=== PATIENT | male | born 1950 | race Caucasian/White ===

== ENCOUNTER 2017-04-30 13:19 | Day surgery (SDC) | payer OTHER ==
[~2017-04-30] VITALS: Ht 170.2 cm; Wt 87.6 kg
[~2017-04-30 13:19] MED LIST: CENTRUM SILVER1 EAC4 PO; CO Q10100 MG PO; FISH OIL 1,0001 EAC2 PO; Glucosamine Ch1 EAC3 PO; Milk Thistle500 MG PO; SILDENAFIL20 MG PO
== END 2017-04-30 15:21 | disposition home or self-care (01) ==
LOC: ORSCSDS 13:19
PROVIDERS: Internal Medicine Gastroenterology
PROC: 0DBN8ZX Excision of Sigmoid Colon, Via Natural or Artificial Opening Endoscopic, Diagnostic (ICD-10-PCS; principal; 2017-04-30 15:00)
DX: Z12.11 Encounter for screening for malignant neoplasm of colon (principal); K63.5 Polyp of colon; K57.30 Diverticulosis of large intestine without perforation or abscess without bleeding; Z86.010 Personal history of colon polyps; Z80.0 Family history of malignant neoplasm of digestive organs; F17.210 Nicotine dependence, cigarettes, uncomplicated
CPT/HCPCS: 88305; J7120

== ENCOUNTER 2020-07-11 07:21 | Inpatient (IN) | payer MEDICARE, OTHER ==
[~2020-07-11] VITALS: Ht 170.2 cm; Wt 71.4 kg
[~2020-07-11 07:21] MED LIST changes: +OXYC10TA19 PO
[2020-07-11 07:59] LABS: Hematocrit 28.7 % (37.0-53.0); Mean Corpuscular HGB 29.4 pg (26.0-34.0); Mean Corpuscular HGB Conc 31.4 g/dL (31.5-36.5); Mean Corpuscular Volume 94 fL (80-100); Mean Platelet Volume 9.6 fL (9.1-12.4); Platelet Count 392 K/mm3 (150-400); RDW Coefficient Variation 16.4 % (11.7-14.2); RDW Standard Deviation 55.2 fL (35.1-46.3); Red Blood Cell Count 3.06 M/mm3 (4.30-5.90)
[2020-07-11 08:05] LABS: Calcium, Ionized (POC) 1.19 mmol/L (1.10-1.46); Chloride (POC) 101 mmol/L (98-108); Glucose (ISTAT POC) 104 mg/dL (70-99); Hemoglobin (POC) 9.5 g/dL (13.5-17.5); Potassium (POC) 4.4 mmol/L (3.5-5.5); Sodium (POC) 137 mmol/L (135-148); Total CO2 (POC) 26 mmol/L (21-32)
[2020-07-11 08:26] LABS: Source, Urine Urostomy Bag
[2020-07-11 08:34] LABS: Alanine Aminotransfer (ALT/SGP 32 U/L (12-78); Albumin, Blood 1.7 g/dL (3.4-5.0); Albumin/Globulin Ratio 0.5 (0.8-1.8); Alk Phos 178 U/L (50-136); Anion Gap 5 mmol/L (6-16); Aspartate Aminotrans (AST/SGOT 22 U/L (12-37); BASOPHILS PERCENT MAN 0 % (0-2); Bilirubin, Total 0.4 mg/dL (0.1-1.0); Blood Urea Nitrogen 31 mg/dL (8-24); Bun/Creatinine Ratio 30.4 (12.0-20.0); CO2, Blood 27 mmol/L (21-32); Calcium, Blood 7.6 mg/dL (8.5-10.1); Chloride, Blood 109 mmol/L (98-108); Creatinine, Blood 1.02 mg/dL (0.60-1.20); EOSINOPHILS PERCENT MAN 0 % (0-6); Globulin, Blood 3.6 g/dL (2.2-4.0); Glomerular Filtration Rate >60 (60-); Glucose, Blood 102 mg/dL (70-99); LYMPHOCYTES ABSOLUTE MAN 3.45 K/mm3 (0.84-5.20); LYMPHOCYTES PERCENT MAN 18 % (21-46); MONOCYTES ABSOLUTE MAN 1.15 K/mm3 (0.16-1.47); MONOCYTES PERCENT MAN 6 % (4-13); NEUTROPHILS ABSOLUTE MAN 14.59 K/mm3 (1.96-9.15); Potassium, Blood 4.6 mmol/L (3.5-5.5); SEG NEUTROPHILS PERCENT MAN 76 % (41-73); Sodium, Blood 141 mmol/L (136-145); TOTAL CELLS COUNTED 100; Total Protein, Blood 5.3 g/dL (6.4-8.2)
[2020-07-11 08:43] LABS: Appearance, Urine Turbid (Clear); Bilirubin, Urine Neg (Neg); Blood, Urine 5+ (Neg); Color, Urine Yellow (P-Yellow); Glucose Qualitative, Urine Neg (Neg); Ketones, Urine 1+ (Neg); Leukocyte Esterase, Urine 3+ (Neg); Nitrite, Urine Neg (Neg); Protein, Urine 3+ (Neg); Specific Gravity, Urine 1.015 (1.003-1.022); Urobilinogen, Urine 2+ (Normal)
[2020-07-11] MEDS ORDERED: Hair, Skin & N1 EACH PO (08:48)
[2020-07-11] MEDS ORDERED: METO25 PO (08:48)
[2020-07-11] MEDS ORDERED: PANT40 PO (08:49)
[2020-07-11] MEDS ORDERED: ACET325 PO (08:49)
[2020-07-11] MEDS ORDERED: ONDA4 PO (08:50)
[2020-07-11] MEDS ORDERED: MELA3 PO (08:50)
[2020-07-11] MEDS ORDERED: OXYB5 PO (08:51)
[2020-07-11] MEDS ORDERED: ALBU90OI6 INH (08:52)
[2020-07-11 09:10] LABS: Bacteria Many /hpf; Squamous Epithelial Cells Not Seen /hpf (Few); White Blood Cells, Urine TNTC /hpf (0-5)
[2020-07-11 11:29] LABS: Source, Urine Catheter
[2020-07-11 11:36] LABS: Hematocrit 23.9 % (37.0-53.0); Hemoglobin 7.5 g/dL (13.5-17.5)
[2020-07-11 11:50] LABS: Blood, Urine 5+ (Neg); Glucose Qualitative, Urine Neg (Neg); Ketones, Urine Neg (Neg); Leukocyte Esterase, Urine 2+ (Neg); Nitrite, Urine Neg (Neg); Protein, Urine 3+ (Neg); Urobilinogen, Urine 1+ (Normal)
[2020-07-11 12:02] LABS: Bilirubin, Urine 1+ (Neg)
[2020-07-11 12:05] LABS: Color, Urine Yellow (P-Yellow)
[2020-07-11 12:06] LABS: Appearance, Urine Hazy (Clear)
[2020-07-11 12:20] LABS: Red Blood Cells, Urine 25-50 /hpf (0-2)
[2020-07-11 12:23] LABS: Squamous Epithelial Cells Rare /hpf (Few)
[2020-07-11 12:24] LABS: Bacteria Mod /hpf; Calcium Oxalate Crystals Rare /hpf; Granular Casts 0-2 /lpf (0); Mucus Mod (0-Heavy); Renal Epithelial Rare /hpf (0-Rare)
--- NOTE | 2020-07-11 13:00 | NUR ---
Assumed care of pt upon arrival from emergency department at 1200. Pt arrived with Stormy RIVERA. Pt slid from ED gurney to ICU bed using slider sheet and 5 staff. Pt tolerated well. Pt A&O x 2. Answers questions. Follows commands. Verbalizes needs. Pleasant and cooperative with care. Forgetful at times, however. Some confusion noted but pt not impulsive and does not attempt to get out of bed. Pt on room air. Tachypnic. Shallow respirations. RR decreases when stimulation is decreased. Lungs dim t/o. No cough noted. SR-ST per monitor with HR ranging between 95 and 105. BP low, but MAP remains above 60. Plan to treat low BP with blood transfusion and reassess. Call placed to David AUDIT ASSOCIATE to clarify order for 3rd bolus of NS. This to be held since blood is being given. Pt arrived to hospital with 22 telugu pretty catheter in place. This was not removed and changed as this pretty is managed by urologist, and pt has complicated anatomy (recent prostatectomy and current urinoma). Catheter care performed. Pt has right urostomy draining rigo urine. Initially dressed with drain sponge and tegaderm. This dressing was removed. Exposed catheter cleaned. Unable to visualize insertion site due to orange/blue opaque securement dressing. New drain sponge and tegaderm placed. Pt has drain to RLQ with milky yellow drainage. Initailly dressed with drain sponge, gauze, and medipore tape. Dressing removed. Site cleaned and dressed with new drain spong, gauze, and medipore tape. Pt has four scars that resemble post-surgical laparocopic sites. Crusted over. Cleaned with Skintegrity skin cleanser. This removed crusting. On assessment, the sites look completely healed and have zero signs of infection. Pt is suspected to have GI bleed, however pt has not had a BM since arrival to hospital. Bed in lowest position. Call light in reach. Pt denies need at this time. Plan to keep pt NPO until Dr Bright consults on patient.
--- NOTE | 2020-07-11 13:30 | NUR ---
Dr Bright in to see pt. Provider states he does not plan to perform endoscopy until pt's blood pressure is higher. States potential for this to happen later today. Will continue to keep pt NPO.
--- NOTE | 2020-07-11 16:15 | NUR ---
Dr Bright in to see pt again. Provider states plan to reassess when blood is done transfusing and repeat H&H has been obtained.
--- NOTE | 2020-07-11 18:02 | NUR ---
SUMMARY No acute changes from initial assessment. Dr Bright states he will perform endoscopy tomorrow. Pt still has not had a BM this shift. PRBC x 2 complete. Pt's daughter, Annmarie ([phone]) and son, Luz Maria ([phone]) updated. BP stable. HR 95-105. Pt remains on room air. Lungs dim, but clear t/o on auscultation after transfusion. Pt remains tachypnic with shallow respirations. Will continue to closely reassess until care handoff and bedside report with oncoming RN.
[2020-07-11 18:26] LABS: Hematocrit 30.7 % (37.0-53.0); Hemoglobin 9.7 g/dL (13.5-17.5)
[2020-07-11 18:26] LABS: Influenza A, PCR NEGATIVE (NEGATIVE); Influenza B, PCR NEGATIVE (NEGATIVE); Resp Syncytial Virus, PCR NEGATIVE (NEGATIVE); SARS-Cov-2 (COVID-19) PCR, MMC NEGATIVE (NEGATIVE)
--- NOTE | 2020-07-11 19:24 | NUR ---
Pt had bowel movement that was liquid and maroon. Call placed to Dr Bright to update. States he will perform endoscopy tomorrow at 8 am. NPO after midnight
--- NOTE | 2020-07-11 20:00 | NUR ---
ASSUMED CARE OF PT AT 1915. REPORT RECEIVED AT BEDSIDE. PT PRESENTS IN BED. ALERT AND ORIENTED. PLEASANT AND COOPERATIVE WITH CARE AND ASSESSMENT. HAS JUST USED BEDPAN AND HAS BEEN SOMEWHAT INCONTINENT TO BLACK/MAROON STOOL. PT DENIES ABDOMINAL PAIN OR GI DISTRESS. NEPHROSTOMY TUBE AND URINOMA TUBE WITH DRAINAGE. NEPHROSTOMY WITH YELLOW DRAINAGE. URINOMA WITH CLOUDY DRAINAGE. PT DEMONSTRATES SHORT TERM DEFICIT. IS ABLE TO MAKE HIS NEEDS KNOWN. WILL REVIEW CHART AND PLAN OF CARE FOR THIS PT.
[2020-07-11 22:25] LABS: Hemoglobin 8.9 g/dL (13.5-17.5)
--- NOTE | 2020-07-12 01:05 | NUR ---
PT HAS HAD THREE LOOSE BLACK/MAROON STOOLS. PT HAS NO COMPLAINTS OF PAIN OR NAUSEA. DEMONSTRATES POOR SHORT TERM MEMORY. CONTINUES ON PROTONIX DRIP.
[2020-07-12 03:26] LABS: BASOPHILS ABSOLUTE AUTO 0.12 K/mm3 (0.00-0.23); BASOPHILS PERCENT AUTO 1 % (0-2); EOSINOPHILS ABSOLUTE AUTO 0.14 K/mm3 (0.00-0.68); EOSINOPHILS PERCENT AUTO 1 % (0-6); Hematocrit 28.1 % (37.0-53.0); Hemoglobin 8.8 g/dL (13.5-17.5); IMMATURE GRAN PERCENT AUTO 1 % (0-1); LYMPHOCYTES ABSOLUTE AUTO 4.21 K/mm3 (0.84-5.20); LYMPHOCYTES PERCENT AUTO 34 % (21-46); MONOCYTES ABSOLUTE AUTO 1.25 K/mm3 (0.16-1.47); MONOCYTES PERCENT AUTO 10 % (4-13); Mean Corpuscular HGB 29.3 pg (26.0-34.0); Mean Corpuscular HGB Conc 31.3 g/dL (31.5-36.5); Mean Corpuscular Volume 94 fL (80-100); Mean Platelet Volume 9.3 fL (9.1-12.4); NEUTROPHILS ABSOLUTE AUTO 6.43 K/mm3 (1.96-9.15); NEUTROPHILS PERCENT AUTO 53 % (41-73); Platelet Count 261 K/mm3 (150-400); RDW Coefficient Variation 17.2 % (11.7-14.2); RDW Standard Deviation 57.1 fL (35.1-46.3); White Blood Cell Count 12.25 K/mm3 (4.00-11.30)
[2020-07-12 03:41] LABS: International Normalized Ratio 1.14; Prothrombin Time Results 12.2 Sec (9.7-11.5)
[2020-07-12 03:45] LABS: Alanine Aminotransfer (ALT/SGP 22 U/L (12-78); Albumin, Blood 1.4 g/dL (3.4-5.0); Albumin/Globulin Ratio 0.5 (0.8-1.8); Alk Phos 124 U/L (50-136); Anion Gap 5 mmol/L (6-16); Aspartate Aminotrans (AST/SGOT 15 U/L (12-37); Bilirubin, Total 0.4 mg/dL (0.1-1.0); Blood Urea Nitrogen 28 mg/dL (8-24); Bun/Creatinine Ratio 45.1 (12.0-20.0); CO2, Blood 25 mmol/L (21-32); Calcium, Blood 7.2 mg/dL (8.5-10.1); Chloride, Blood 116 mmol/L (98-108); Creatinine, Blood 0.62 mg/dL (0.60-1.20); Glomerular Filtration Rate >60 (60-); Glucose, Blood 92 mg/dL (70-99); Magnesium, Blood 1.5 mg/dL (1.6-2.4); Phosphorus, Blood 3.1 mg/dL (2.5-4.9); Potassium, Blood 4.1 mmol/L (3.5-5.5); Sodium, Blood 146 mmol/L (136-145); Total Protein, Blood 4.4 g/dL (6.4-8.2)
--- NOTE | 2020-07-12 05:23 | NUR ---
PT HAS BEEN ABLE TO REST SOME THIS NIGHT. DID ADMINISTER MELATONIN PER PT'S REQUEST. THIS DONE WITH GOOD RESULTS. NO FURTHER STOOLS TO NOTE. AM LABS DONE WITH HGB STABLE COMPARED TO PREVIOUS. VSS. DID PLACE O2 AT 3 L/M SECONDARY TO PT DESATURATING WHILE ASLEEP IN A SLEEP APNEIC TYPE RESPIRATORY PATTERN. WILL CONTINUE TO MONITOR PT, AND WILL REPORT OFF TO ONCOMING RN.
[2020-07-12 07:25] LABS: Hematocrit 27.9 % (37.0-53.0); Hemoglobin 8.9 g/dL (13.5-17.5)
--- NOTE | 2020-07-12 10:03 | NUR ---
07/12/20 1003 Erendira Gamino MAC CASE IN ICU 8. SEE DR SHARMA FLOWSHEET FOR CARE
--- NOTE | 2020-07-12 11:05 | NUR ---
ASSUMED CARE OF PATIENT AT 0700. RECEIVED REPORT FROM MIGUEL HONG ALONGSIDE DIANE VELÁZQUEZ RN. PATIENT IS A/O X4, CALM, AND RESPONDS APPROPRIATELY TO QUESTIONS AT THIS TIME. HE HAS A PITTS CATHETER DRAINING CLOUDY YELLOW URINE TO GRAVITY THAT WAS CLEANED THIS SHIFT. HE HAS A RIGHT NEPHROSTOMY TUBE THAT IS PATENT AND DRAINING WELL A RIGHT ABDOMINAL TUBE PATENT AND DRAINING. PATIENT HAD ENDOSCOPY PROCEDURE DONE AT BEDSIDE AT 1000 THAT HE TOLERATED WELL. PATIENT IS SLEEPING QUIETLY AT THIS TIME WITH CALL LIGHT IN REACH. WILL CONTINUE TO MONITOR.
--- NOTE | 2020-07-12 15:59 | NUR ---
Pt up to chair this afternoon. Stated he did not want to sit up for long, but was agreeable for sitting up for 30 minutes. Sponge bath given while pt sitting up in chair. Pt tolerated bath well. Transferred back to bed using gait belt, walker, and one person moderate assist. Upon returning to bed, pt became tachycardic. BP low-normal. EKG obtained. Atrial fibrillation with HR 145-160. Pt denies chest pain, light headedness, and dizziness. States "maybe" when asked if he is short of breath. Call placed to Dr Arellano. At this time, BP 117/77. Orders given for metoprolol IV. Noted that pt takes metoprolol at [facility].
[2020-07-12 16:10] LABS: Hematocrit 29.7 % (37.0-53.0); Hemoglobin 9.4 g/dL (13.5-17.5)
--- NOTE | 2020-07-12 17:43 | NUR ---
END OF SHIFT SUMMARY PATIENT REMAINS ALERT AND ORIENTED. AMBULATED FROM BED TO CHAIR WITH FWW, GAIT BELT, AND MINIMAL ASSIST WITH ONE STAFF MEMBER AROUND 1500. PT STATED SLIGHT DIZZINESS AND SHORTNESS OF BREATH DURING TRANSFER AND THAT HE DID NOT FEEL HE COULD TOLERATE SITTING UP VERY LONG. AFTER 20 MINUTES, PATIENT TRANSFERRED BACK TO BED AND STATED FEELING TIRED. HIS BP WAS 85/70, HR 140-150'S, RESPIRATIONS 30S, AND O2 SAT FROM FINGER PROBE >95 ON RA. AN ECG WAS OBTAINED THAT SHOWED AFIB WITH RVR. DR GILLILAND WAS NOTIFIED AND PT WAS GIVEN METOPROLOL IV PER DR. GILLILAND'S ORDER. BP SILVIA BACK TO 117/88 WITH HR IN 130'S AFTER 10 MINUTES. HR HAS REMAINED 130-150 SINCE THEN. PATIENT STARTED ON CLEAR LIQUID DIET AND IS TOLERATING WELL. PITTS CATHETER DRAINING CLOUDY YELLOW URINE TO GRAVITY. RIGHT NEPHROSTOMY TUBE DRAINING TRA TINGED LIQUID TO GRAVITY AND RIGHT ABDOMINAL TUBE DRAINING YELLOW LIQUID TO GRAVITY. RIGHT FOREARM IV WAS REMOVED. JULESNET HAS RIGHT HAND IV AND POWERGLIDE IN LEFT UPPER ARM THAT ARE C/D/I.
--- NOTE | 2020-07-12 20:00 | NUR ---
ASSUMED CARE OF PT AT 1915. REPORT RECEIVED AT BEDSIDE. PT PRESENTS IN BED. ALERT AND ORIENTED. PLEASANT AND COOPERATIVE WITH CARE AND ASSESSMENT. DENIES COMPLAINTS OF PAIN. NO S/S ACTIVE BLEEDING. HAS HAD ENDOSCOPY DONE EARLIER IN THE DAY. PT IN ATIRAL FIBRILLATION WHICH STARTED EARLIER IN THE SHIFT. PT'S BLOOD PRESSURES REMAIN SOMEWHAT HYPOTENSIVE. MAINTAINS MAP > 60. URINOMA TUBE, NEPHRO TUBE INTACT. WILL REVIEW CHART AND PLAN OF CARE FOR THIS PT.
--- NOTE | 2020-07-12 23:00 | NUR ---
PT CONTINUES ON PROTONIX DRIP AT 8MG PER HOUR. NO S/S ACTIVE BLEEDING. CONTINUES IN ATRIAL FIBRILLATION. ROOM AIR PT IS ABLE TO MAINTAIN > 90 PERCENT SATURATIONS. IS ABLE TO MOVE ABOUT IN BED. DOES NEED ENCOURAGEMENT TO TURN.
--- NOTE | 2020-07-13 00:30 | NUR ---
PT CONVERTED FROM A-FIB TO SINUS RHYTHM JUST AFTER MIDNIGHT. SEE PRINTED RHYTHM SHEET FOR DETAILS. WILL CONTINUE TO MONITOR
--- NOTE | 2020-07-13 04:25 | NUR ---
PT HAS BLACK STOOL THAT WAS VERY LOOSE. WAS SMALL IN AMOUNT. NO CARINE BLOOD NOTED. PT TAKES CLEAR LIQUIDS WITHOUT COMPLAINTS OF GI DISTRESS OR NAUSEA. WILL CONTINUE TO MONITOR.
[2020-07-13 04:28] LABS: Hematocrit 27.9 % (37.0-53.0); Hemoglobin 8.6 g/dL (13.5-17.5)
--- NOTE | 2020-07-13 06:44 | NUR ---
PT ABLE TO REST THIS MORNING. REMAINS IN SINUS RHYTHM. BLOOD PRESSURES WNL. MAP MAINTAINS > 65. NO ACTIVE BLEEDING TO NOTE. WILL CONTINUE TO MONITOR PT, AND WILL REPORT OFF TO ONCOMING RN.
[2020-07-13 09:28] LABS: Percent Saturation 16.9 % (20.0-50.0)
--- NOTE | 2020-07-13 12:05 | NUR ---
CARE ASSUMED ASSESSMENTS COMPLETED, PT ALERT AND ORIENTED, APPROPRIATE AND COOPERATIVE. LS CLEAR, SPO2 MID 90'S ON RA, PT DENIES SOB. HR 70'S SINUS, BP STABLE. ABD MILDLY DISTENDED, PT DENIES ABD PAIN AND NAUSEA, NO VOMITING. SMALL BLACK BM THIS MORNING ON BEDPAN. PTITS PATENT, DRAINING CLEAR YELLOW URINE. NEPHROSTOMY TO R FLANK DRAINING TO GRAVITY, CLEAR YELLOW DRAINAGE, DRESSING CDI. URINOMA DRAIN TO RLQ DRAINING TO GRAVITY, CLOUDY YELLOW, DRESSING CDI. PT DENIES PAIN, ABLE TO REPOSITION IN BED, DENIES C/O. DR. GILLILAND IN TO ASSESS, PT GIVEN ICE CHIPS. PROTONIX INFUSING PER ORDERS.
--- NOTE | 2020-07-13 13:10 | NUR ---
UPDATE PT NAPPING OFF AND ON TODAY, DENIES PAIN, NAUSEA, OR ABD C/O. TOLERATING ICE CHIPS WELL. NO EMESIS THIS SHIFT, NO ADDITIONAL BM'S AFTER THIS MORNING'S SMALL STOOL. PITTS, NEPHROSTOMY DRAIN, AND UROMA DRAIN ALL PATENT AND DRAINING, NO CHANGES NOTED TO QUALITY OF DRAINAGE. PT PLEASANT, DENIES NEEDS. ASSISTED TO REPOSITION.
--- NOTE | 2020-07-13 18:17 | NUR ---
END OF SHIFT PT HAD AN UNEVENTFUL DAY, VSS, SPO2 >90% ON RA, LS CLEAR, PT DENIES SOB/CP. HR REMAINED SINUS 60'S-70'S, BP STABLE. ABD SOFT, NONTENDER, ONE BLACK STOOL TODAY, NO N/V. NEPHROSTOMY OUTPUT CLEAR YELLOW, URINOMA OUTPUT CLOUDY YELLOW, PITTS DRAINING CLEAR YELLOW. PROTONIX GTT TO CONTINUE UNTIL TOMORROW. PT ATE A SMALL AMOUNT OF DINNER WITH NO C/O.
--- NOTE | 2020-07-13 20:00 | NUR ---
ASSUMED CARE OF PT AT 1915. REPORT RECEIVED. PT PRESENTS IN BED. ALERT AND ORIENTED. PLEASANT AND COOPERATIVE WITH CARE AND ASSESSMENT. PT ENCOURAGED TO PARTICIPATE MORE IN HIS ADL'S AND MOVE ABOUT MORE TO INCREASE STRENGTH. PT VERBALIZES UNDERSTANDING. PT HAS NEPHROSTOMY TUBE WITH CLEAR YELLOW DRAINAGE. URINOMA TUBE WITH HAZY YELLOW OUTPUT. PT DENIES COMPLAINTS OF PAIN OR GI UPSET. NO ACTIVE BLEEDING TO NOTE. WILL REVIEW CHART AND PLAN OF CARE FOR THIS PT.
[2020-07-14 04:41] LABS: Hematocrit 28.6 % (37.0-53.0); Mean Corpuscular HGB 29.1 pg (26.0-34.0); Mean Corpuscular HGB Conc 31.5 g/dL (31.5-36.5); Mean Corpuscular Volume 93 fL (80-100); Mean Platelet Volume 9.3 fL (9.1-12.4); Platelet Count 221 K/mm3 (150-400); RDW Coefficient Variation 16.7 % (11.7-14.2); RDW Standard Deviation 54.5 fL (35.1-46.3); Red Blood Cell Count 3.09 M/mm3 (4.30-5.90)
[2020-07-14 04:57] LABS: Anion Gap 4 mmol/L (6-16); Blood Urea Nitrogen 8 mg/dL (8-24); Bun/Creatinine Ratio 14.4 (12.0-20.0); CO2, Blood 26 mmol/L (21-32); Calcium, Blood 7.2 mg/dL (8.5-10.1); Chloride, Blood 114 mmol/L (98-108); Creatinine, Blood 0.55 mg/dL (0.60-1.20); Glomerular Filtration Rate >60 (60-); Glucose, Blood 81 mg/dL (70-99); Magnesium, Blood 1.4 mg/dL (1.6-2.4); Potassium, Blood 3.4 mmol/L (3.5-5.5); Sodium, Blood 144 mmol/L (136-145)
--- NOTE | 2020-07-14 10:50 | NUR ---
CARE ASSUMED ASSESSMENTS COMPLETED, VSS, HR 60'S-70'S IRREGULAR SINUS. PT DENIES SOB AND CP, LS CLEAR, DIM IN BASES, SPO2 MID 90'S ON RA, PT TACHYPNEIC WITH RATE AROUND 30, RESPIRATIONS SHALLOW. ABD SOFT, DIFFUSE TENDERNESS ONLY ON PALPATION, PT DENIES NAUSEA. NO N/V, NO BM THIS MORNING. PROTONIX GTT DC'D, PT RECEIVING ELECTROLYTE REPLACEMENT AND IV IRON PER ORDERS. PT REPOSITIONED, PLAN FOR PT TODAY.
[2020-07-14 16:01] LABS: Hematocrit 31.4 % (37.0-53.0)
--- NOTE | 2020-07-14 19:44 | NUR ---
END OF SHIFT PT RELUCTANT TO PARTICPATE IN ACTIVITY TODAY, HAD TO BE ENCOURAGED TO MOVE HIMSELF IN BED, REFUSED P/T THIS AFTERNOON STATING HE HAD TO HAVE A BM. PT THEN ASSISTED BY THIS RN TO GET OOB TO BSC, GAIT STEADY WITH SBA. AFTER BSC, PT WENT TO CHAIR FOR A HALF HOUR, THEN TO SHOWER WITH BEVERAGE INSPECTION MACHINE TENDER ASSIST, TOLERATED ACTIVITY WELL. PT THEN BACK TO BED TO NAP. APPETITE POOR, ENSURE ORDERED. DRESSING TO URINOMA CHANGED TODAY, DRESSING TO NEPHROSTOMY CDI, OUTPUT FROM EACH UNCHANGED IN COLOR AND CLARITY. GOOD OUTPUT FROM PITTS, URINE IN PITTS REMAINS CLEAR YELLOW. PT HAD ONE BM THIS SHIFT, REMAINS DARK BUT APPEARS CERTIFIED MEDICAL DOSIMETRIST THAN YESTERDAY. NO N/V. LS CLEAR, PT DENIED SOB ALL SHIFT DESPITE TACHYPNEA RATE 20'S-30. PT MEDICAL STATUS.
--- NOTE | 2020-07-14 21:00 | NUR ---
ASUMPTION OF CARE: PATIENT RESTING COMFORTABLY IN BED. A/O X3 AND ONLY HAS PAIN WHEN PALPATING ABDOMEN. PATAIENT REPOSITIONED FOR COMFORT AND WILL CONTINUE TO DO SO Q2. REPORTS THAT HE FEELS "MUCH BETTER" AND ASKING IF HE COULD MAYBE GO HOME TOMORROW. PATIENT EATING/SLEEPING OKAY AND IS VERY PLEASANT TO SPEAK WITH. PATIENT SPOKE WITH FAMILY ON THE PHONE THIS EVENING
[2020-07-15 03:32] LABS: BASOPHILS ABSOLUTE AUTO 0.09 K/mm3 (0.00-0.23); BASOPHILS PERCENT AUTO 1 % (0-2); EOSINOPHILS ABSOLUTE AUTO 0.16 K/mm3 (0.00-0.68); EOSINOPHILS PERCENT AUTO 2 % (0-6); Hemoglobin 9.4 g/dL (13.5-17.5); IMMATURE GRAN PERCENT AUTO 1 % (0-1); LYMPHOCYTES ABSOLUTE AUTO 2.94 K/mm3 (0.84-5.20); LYMPHOCYTES PERCENT AUTO 28 % (21-46); MONOCYTES ABSOLUTE AUTO 1.12 K/mm3 (0.16-1.47); MONOCYTES PERCENT AUTO 11 % (4-13); Mean Corpuscular HGB Conc 31.3 g/dL (31.5-36.5); Mean Corpuscular Volume 93 fL (80-100); Mean Platelet Volume 9.6 fL (9.1-12.4); NEUTROPHILS ABSOLUTE AUTO 6.02 K/mm3 (1.96-9.15); NEUTROPHILS PERCENT AUTO 58 % (41-73); Platelet Count 224 K/mm3 (150-400); RDW Coefficient Variation 16.8 % (11.7-14.2); RDW Standard Deviation 53.3 fL (35.1-46.3); Red Blood Cell Count 3.24 M/mm3 (4.30-5.90); White Blood Cell Count 10.43 K/mm3 (4.00-11.30)
[2020-07-15 03:54] LABS: Anion Gap 6 mmol/L (6-16); Blood Urea Nitrogen 6 mg/dL (8-24); Bun/Creatinine Ratio 10.8 (12.0-20.0); CO2, Blood 24 mmol/L (21-32); Calcium, Blood 7.2 mg/dL (8.5-10.1); Chloride, Blood 115 mmol/L (98-108); Creatinine, Blood 0.55 mg/dL (0.60-1.20); Glomerular Filtration Rate >60 (60-); Glucose, Blood 89 mg/dL (70-99); Potassium, Blood 3.4 mmol/L (3.5-5.5); Sodium, Blood 145 mmol/L (136-145)
[2020-07-15 04:36] LABS: Magnesium, Blood 1.6 mg/dL (1.6-2.4); Phosphorus, Blood 2.3 mg/dL (2.5-4.9)
--- NOTE | 2020-07-15 06:40 | NUR ---
SUMMARY: PATINET SLEPT THE MAJORITY OF THE NIGHT BUT WOKE UP FOR TURNS AND WATER. PATIENT A/O X3, DENIES PAIN UNLESS PALPATING ABDOMEN, AND IS IN GOOD SPIRITS. PATIENT EAGERLY ASKING ABOUT THE POTNETIAL TO TRANSFER OUT TO REHAB TODAY. PATIENT HAD ONE BM THIS MORNING AND GOT 20 OF K FOR A 3.4 POTASSIUM- PENDING MG AND PHOS ADD ONS.
--- NOTE | 2020-07-15 07:30 | NUR ---
ASSUMED CARE: PT RESTING QUIETLY IN BED AT THIS TIME. NSR AT 81 ON TELE. NO ACUTE NEEDS OR CONCERNS.
--- NOTE | 2020-07-15 08:30 | NUR ---
DR BONNER CAME TO SEE PT AND IS AWARE THAT PT HAD BLACK, TARRY STOOL THIS AM. NO NEW ORDERS DUE TO PT'S H AND H STABLE AT THIS TIME.
--- NOTE | 2020-07-15 10:39 | NUR ---
CALL TO DR BONNER TO REEVALUATE ANTIBIOTICS DUE TO MICRO SENSITIVITY REPORT THAT SHOWED CURRENT ABX ARE NOT MOST EFFECTIVE, PER PHARMACIST. TO REVIEW AND REORDER
--- NOTE | 2020-07-15 18:39 | NUR ---
SHIFT SUMMARY: PHYSICAL THERAPY CAME TO WORK WITH PT AND PT IS SBA TO CHAIR. NEEDS FREQUENT ENCOURAGMENT TO CHANGE POSITIONS. PLAN IS DC TO RH WHEN STABLE FOR DC. RIGHT NEPHROSTOMY AND ABDOMINAL BAG PUTTING OUT DRAINAGE. ABDOMINAL DRAINAGE IS SLIGHTLY CLOUDY. NO ACUTE NEEDS OR CONCERNS AT THIS TIME.
--- NOTE | 2020-07-15 21:00 | NUR ---
ASUMPTION OF CARE: PATIENT AWAKE AND ORIENTED. PATIENT STATES THAT HE IS FEELING GOOD UNLESS HIS ABDOMEN IS BEING PALPATED OR WHEN HE IS SITTING UPRIGHT IN A CHAIR. MELETONIN GIVEN TO PROMOTE A BETTER NIGHTS REST. VITALS REMAIN STABLE AND STILL ROOM AIR. PATIENT TURNED WITH ASSISTANCE AND WILL CONTINUE TO DO SO Q2. PATIENT USES CALL LIGHT WHEN NEEDING ASSISTANCE.
[2020-07-16 03:39] LABS: BASOPHILS ABSOLUTE AUTO 0.07 K/mm3 (0.00-0.23); BASOPHILS PERCENT AUTO 1 % (0-2); EOSINOPHILS ABSOLUTE AUTO 0.12 K/mm3 (0.00-0.68); EOSINOPHILS PERCENT AUTO 1 % (0-6); Hematocrit 29.3 % (37.0-53.0); Hemoglobin 9.2 g/dL (13.5-17.5); IMMATURE GRAN ABSOLUTE AUTO 0.09 K/mm3 (0.00-0.10); IMMATURE GRAN PERCENT AUTO 1 % (0-1); LYMPHOCYTES ABSOLUTE AUTO 3.05 K/mm3 (0.84-5.20); LYMPHOCYTES PERCENT AUTO 36 % (21-46); MONOCYTES PERCENT AUTO 13 % (4-13); Mean Corpuscular HGB 29.1 pg (26.0-34.0); Mean Corpuscular HGB Conc 31.4 g/dL (31.5-36.5); Mean Corpuscular Volume 93 fL (80-100); Mean Platelet Volume 9.6 fL (9.1-12.4); NEUTROPHILS ABSOLUTE AUTO 4.11 K/mm3 (1.96-9.15); NEUTROPHILS PERCENT AUTO 48 % (41-73); Platelet Count 238 K/mm3 (150-400); RDW Coefficient Variation 17.2 % (11.7-14.2); RDW Standard Deviation 54.4 fL (35.1-46.3); Red Blood Cell Count 3.16 M/mm3 (4.30-5.90); White Blood Cell Count 8.54 K/mm3 (4.00-11.30)
[2020-07-16 03:56] LABS: Anion Gap 3 mmol/L (6-16); Blood Urea Nitrogen 5 mg/dL (8-24); Bun/Creatinine Ratio 9.9 (12.0-20.0); CO2, Blood 27 mmol/L (21-32); Calcium, Blood 7.6 mg/dL (8.5-10.1); Chloride, Blood 114 mmol/L (98-108); Creatinine, Blood 0.51 mg/dL (0.60-1.20); Glomerular Filtration Rate >60 (60-); Glucose, Blood 77 mg/dL (70-99); Potassium, Blood 3.3 mmol/L (3.5-5.5); Sodium, Blood 144 mmol/L (136-145)
--- NOTE | 2020-07-16 06:33 | NUR ---
END OF SHIFT SUMMARY: PATIENT VITALS REMAIN STABLE AND DENIES DISCOMFORT. PATIENT WAS ABLE TO SLEEP MOST OF THE NIGHT. DRESSINGS REMAIN CLEAN/DRY/INTACT.
--- NOTE | 2020-07-16 10:54 | NUR ---
AT START OF SHIFT THE PT REQUESTED TO USE BSC, A LOT OF VERBAL CUES TO ENCOURAGE HIM TO DO THE MAJORITY OF THE TRANSFER TO BSC. HE DID VERY WELL AND THEN TRANSFERRED TO THE RECLINER FOR BREAKFAST. HE DID NOT LIKE WHAT WAS SENT FOR BREAKFAST AND REQUESTED SOMETHING DIFFERENT. HE STAYED IN THE CHAIR UNTIL THAT CAME, HE ATE AND THEN BACK TO BED HE WENT. HE IS RECEIVING THE LAST OF HIS IV FLUIDS AND K+ RIDERS PER . HE IS BEING CONVERTED TO ORAL MEDICATIONS. WORKING WITH O/T AT THIS TIME.
--- NOTE | 2020-07-16 11:07 | NUR ---
TYLER HAS PG TO OSMAN WHERE THE K+ IS INFUSING. THE SITE IS TENDER, USING NACL AT TKO TO HELP WITH THE DISCOMFORT, ALSO PLACED A WARM PACK TO HELP.
--- NOTE | 2020-07-16 13:00 | NUR ---
TYLER IS FEELING RATHER TIRED POST OCCUPATIONAL THERAPY TODAY, HE HAS ASKED THAT HIS TRAY BE PUT ASIDE TIL LATER SO HE CAN NAP. PT BEING PLEASANT AND COOPERATIVE AT THIS TIME.
--- NOTE | 2020-07-16 14:43 | NUR ---
MIGUEL SAAVEDRA FROM MEDICAL FLOOR CALLED FOR REPORT. REPORT GIVEN, QUESTIONS ANSWERED. PT HAS BEEN RESTING THIS AFTERNOON. NO COMPLAINTS
--- NOTE | 2020-07-16 15:04 | NUR ---
PT TRANSFERRED VIA WHEELCHAIR WITH 1 PERSON ASSIST TO MEDICAL FLOOR 363. PT'S SON WAS HERE AND IS AWARE OF TRANSFER. PT TOLERATED THE TRANSFER TO THE WELL AND WITHOUT COMPLAINT.
--- NOTE | 2020-07-16 15:45 | NUR ---
ASSUMED CARE FOR THIS PT. RECEIVED REPORT OVER PHONE FROM ICU NURSE. PT ORIENTED TO ROOM AND CALL LIGHT SYSTEM. PT RESTING IN BED.
--- NOTE | 2020-07-16 18:10 | NUR ---
SHIFT SUMMARY ALERT AND ORIENTED AND ABLE TO MAKE NEEDS KNONW. PT TRANSFERED FROM BED TO CHAIR W/ FWW. PT DENIES P,N,V AT THIS TIME. PT IS SINUS RHYTHM AT 72. HE IS CURENTLY SITTING UP IN BED EATING DINNER, WITH CALL LIGHT NEXT TO HIM. NO ACUTE CHANGES DURING HIS TIME ON THIS FOOR.
[2020-07-17 06:13] LABS: BASOPHILS ABSOLUTE AUTO 0.04 K/mm3 (0.00-0.23); BASOPHILS PERCENT AUTO 1 % (0-2); EOSINOPHILS ABSOLUTE AUTO 0.09 K/mm3 (0.00-0.68); EOSINOPHILS PERCENT AUTO 1 % (0-6); Hematocrit 29.5 % (37.0-53.0); Hemoglobin 9.5 g/dL (13.5-17.5); IMMATURE GRAN ABSOLUTE AUTO 0.11 K/mm3 (0.00-0.10); IMMATURE GRAN PERCENT AUTO 1 % (0-1); LYMPHOCYTES ABSOLUTE AUTO 3.27 K/mm3 (0.84-5.20); LYMPHOCYTES PERCENT AUTO 39 % (21-46); MONOCYTES ABSOLUTE AUTO 1.06 K/mm3 (0.16-1.47); MONOCYTES PERCENT AUTO 13 % (4-13); Mean Corpuscular HGB Conc 32.2 g/dL (31.5-36.5); Mean Corpuscular Volume 93 fL (80-100); Mean Platelet Volume 9.8 fL (9.1-12.4); NEUTROPHILS ABSOLUTE AUTO 3.92 K/mm3 (1.96-9.15); NEUTROPHILS PERCENT AUTO 46 % (41-73); Platelet Count 260 K/mm3 (150-400); RDW Coefficient Variation 17.8 % (11.7-14.2); RDW Standard Deviation 57.1 fL (35.1-46.3); Red Blood Cell Count 3.17 M/mm3 (4.30-5.90); White Blood Cell Count 8.49 K/mm3 (4.00-11.30)
[2020-07-17 06:34] LABS: Anion Gap 4 mmol/L (6-16); Blood Urea Nitrogen 3 mg/dL (8-24); Bun/Creatinine Ratio 5.7 (12.0-20.0); CO2, Blood 26 mmol/L (21-32); Calcium, Blood 7.6 mg/dL (8.5-10.1); Chloride, Blood 114 mmol/L (98-108); Creatinine, Blood 0.53 mg/dL (0.60-1.20); Glomerular Filtration Rate >60 (60-); Glucose, Blood 89 mg/dL (70-99); Potassium, Blood 3.6 mmol/L (3.5-5.5); Sodium, Blood 144 mmol/L (136-145)
--- NOTE | 2020-07-17 06:43 | NUR ---
SHIFT SUMMARY: AOX3, BEDBOUND. WEAK. NO BM THIS SHIFT. CATHETER, NEPHROSTOMY, AND OTHER URINARY DEVICE ALL DRAINING WELL, CLEAR YELLOW URINE. NO PAIN THIS SHIFT. VS WNL, AFEBRILE. COCCYX GETTING SORE, REPOSITIONED EVERY 2 HOURS. ENCOURAGED GETTING UP OUT OF BED. NO NAUSEA. FAIR APPETITE. CALL LIGHT IS IN REACH AND HE USES IT APPROPRIATLY. NO OTHER CHANGES TO NOTE THIS SHIFT.
[2020-07-17 14:11] LABS: Influenza A, PCR NEGATIVE (NEGATIVE); Influenza B, PCR NEGATIVE (NEGATIVE); Resp Syncytial Virus, PCR NEGATIVE (NEGATIVE); SARS-Cov-2 (COVID-19) PCR, MMC NEGATIVE (NEGATIVE)
[2020-07-17] MEDS ORDERED: VISBIOME 112.51 EACH PO (15:38)
[2020-07-17] MEDS ORDERED: LEVO750 PO (15:38)
[2020-07-17] MEDS ORDERED: PROM25 PO (15:39)
--- NOTE | 2020-07-17 18:41 | NUR ---
PT RESTING IN BED AFTER DINNER AND PM MEDICATION ADMIN. PT REMAINS ALERT AND ORIENTED X4, JUST SLOW TO RESPOND. PT IV HAS BEEN DC'D WNL, FOR PENDING DISCHARGE. CUSTOMER DEVELOPMENT MANAGER TIME WAS 1600. SAFF WILL CONT TO MONITOR PT FOR CHANGES WHILE IN OUR CARE. ALL THREE URINARY LINES ARE WNL AND STAYING WITH PT ON DC.
--- NOTE | 2020-07-17 19:43 | NUR ---
CALLED [facility], THEY WERE WAITING TO CONFIRM THE RIDE. DID THAT, NOW THEY ARE ON THEIR WAY.
--- NOTE | 2020-07-17 20:04 | NUR ---
[facility] has arrived to slate picker the patient. All belongings are sent with them. Patient went by wheelchair.
--- NOTE | 2020-07-17 20:22 | NUR ---
PATIENT HAS DISCHARGED TO [facility]
== END 2020-07-17 20:27 | DRG 377 ==
LOC: ER 07:21 → ICUW 11:23 → ICUE 11:23 → MEDS 07-16 15:21
PROVIDERS: Emergency Medicine; Internal Medicine; Internal Medicine Gastroenterology; Nurse Practitioner Acute Care; ADMIT Internal Medicine
PROC: 0W3P8ZZ Control Bleeding in Gastrointestinal Tract, Via Natural or Artificial Opening Endoscopic (ICD-10-PCS; 2020-07-12)
PROC: 30233N1 Transfusion of Nonautologous Red Blood Cells into Peripheral Vein, Percutaneous Approach (ICD-10-PCS; principal; 2020-07-12 11:15)
DX: K25.4 Chronic or unspecified gastric ulcer with hemorrhage (principal); A41.9 Sepsis, unspecified organism; R65.21 Severe sepsis with septic shock; D62 Acute posthemorrhagic anemia; I48.0 Paroxysmal atrial fibrillation; E87.6 Hypokalemia; Z20.822 Contact with and (suspected) exposure to COVID-19; J44.9 Chronic obstructive pulmonary disease, unspecified; Z85.46 Personal history of malignant neoplasm of prostate; Z90.79 Acquired absence of other genital organ(s); Z98.890 Other specified postprocedural states; Z79.899 Other long term (current) drug therapy; Z86.718 Personal history of other venous thrombosis and embolism; I71.4 Abdominal aortic aneurysm, without rupture; N36.8 Other specified disorders of urethra; E83.42 Hypomagnesemia; Z87.442 Personal history of urinary calculi; F17.210 Nicotine dependence, cigarettes, uncomplicated
CPT/HCPCS: 0241U; 36415; 36430; 71045; 74177; 80047; 80048; 80053; 81001; 82728; 83540; 83550; 83605; 83735; 84100; 85014; 85018; 85025; 85027; 85610; 86850; 86900; 86901; 86923; 87040; 87070; 87075; 87077; 87086; 87186; 87205; 93005; 93010; 96361; 96365-59; 96375; 97110; 97116; 97162; 97166; 97530; 97535; 99285-25; A9270; A9270-GY; C9113; J0171; J0692; J0696; J1430; J1956; J2704; J2916; J3475; J3480; J7030; J7120; P9016; Q9967

== ENCOUNTER 2020-09-25 19:50 | Emergency (ER) | payer MEDICARE, OTHER ==
[~2020-09-25] VITALS: Ht 170.2 cm; Wt 63.5 kg
[~2020-09-25 19:50] MED LIST changes: +ACET325 PO; +ALBU90OI6 INH; +Hair, Skin & N1 EACH PO; +LEVO750 PO; +MELA3 PO; +METO25 PO; +ONDA4 PO; +OXYB5 PO; +OXYC5 PO; +PANT40 PO; +PROM25 PO; +VISBIOME 112.51 EACH PO
[2020-09-25 20:27] LABS: BASOPHILS ABSOLUTE AUTO 0.07 K/mm3 (0.00-0.23); BASOPHILS PERCENT AUTO 1 % (0-2); EOSINOPHILS ABSOLUTE AUTO 0.14 K/mm3 (0.00-0.68); EOSINOPHILS PERCENT AUTO 1 % (0-6); Hematocrit 42.2 % (37.0-53.0); IMMATURE GRAN ABSOLUTE AUTO 0.04 K/mm3 (0.00-0.10); IMMATURE GRAN PERCENT AUTO 0 % (0-1); LYMPHOCYTES ABSOLUTE AUTO 2.86 K/mm3 (0.84-5.20); LYMPHOCYTES PERCENT AUTO 25 % (21-46); MONOCYTES PERCENT AUTO 10 % (4-13); Mean Corpuscular HGB 28.7 pg (26.0-34.0); Mean Corpuscular HGB Conc 33.2 g/dL (31.5-36.5); Mean Corpuscular Volume 87 fL (80-100); Mean Platelet Volume 10.4 fL (9.1-12.4); NEUTROPHILS PERCENT AUTO 64 % (41-73); Platelet Count 410 K/mm3 (150-400); RDW Coefficient Variation 16.2 % (11.7-14.2); RDW Standard Deviation 51.7 fL (35.1-46.3); Red Blood Cell Count 4.88 M/mm3 (4.30-5.90); White Blood Cell Count 11.61 K/mm3 (4.00-11.30)
[2020-09-25 20:45] LABS: Alanine Aminotransfer (ALT/SGP 19 U/L (12-78); Albumin/Globulin Ratio 0.6 (0.8-1.8); Alk Phos 95 U/L (50-136); Anion Gap 7 mmol/L (6-16); Aspartate Aminotrans (AST/SGOT 35 U/L (12-37); Bilirubin, Total 0.6 mg/dL (0.1-1.0); Blood Urea Nitrogen 16 mg/dL (8-24); Bun/Creatinine Ratio 23.8 (12.0-20.0); CO2, Blood 30 mmol/L (21-32); Chloride, Blood 102 mmol/L (98-108); Creatinine, Blood 0.67 mg/dL (0.60-1.20); Glomerular Filtration Rate >60 (60-); Glucose, Blood 114 mg/dL (70-99); Potassium, Blood 4.2 mmol/L (3.5-5.5); Sodium, Blood 139 mmol/L (136-145)
== END 2020-09-25 22:24 | disposition left against medical advice (07) ==
LOC: ER 19:50
PROVIDERS: Physician Assistant
DX: R10.9 Unspecified abdominal pain (principal); R11.2 Nausea with vomiting, unspecified; R19.5 Other fecal abnormalities; Z53.21 Procedure and treatment not carried out due to patient leaving prior to being seen by health care provider
CPT/HCPCS: 36415; 80053; 85025; 93005; 93010; 96374; 99284-25

== ENCOUNTER → 2020-10-14 | Outpatient (CLI) | payer MEDICARE, OTHER | END | disposition home or self-care (01) | LOC: LAB SHORT 16:06 | DX: N39.0 Urinary tract infection, site not specified (principal) | CPT/HCPCS: 87077; 87086; 87186 ==